=== PATIENT | female | born 1960 | race Caucasian/White ===

== ENCOUNTER 2020-07-06 03:22 | Emergency (ER) | payer MEDICARE, MEDICAID ==
[~2020-07-06] VITALS: Ht 162.6 cm; Wt 75.0 kg
[2020-07-06] MEDS ORDERED: ACETAMINOPHEN 500 MG TABLET PO ONE (03:30)
[2020-07-06] MEDS ORDERED: ACETAMINOPHEN 500 MG TABLET ONE (03:34)
--- NOTE | 2020-07-06 03:37 | NUR ---
Lab here drawing blood, pt refused tylenol says she can't take that. Requested urine sample from pt, instructed on clean catch urine.
--- NOTE | 2020-07-06 03:44 | NUR ---
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 Pt demanding to see physician, yelling at this nurse that "you are rude for telling me that meth is bad".
--- NOTE | 2020-07-06 03:51 | NUR ---
Pt placed on bedpan for urine
[2020-07-06 04:03] LABS: BASOPHILS % (AUTO) 1 % (0-1); EOSINOPHILS % (AUTO) 2 % (1-7); LYMPHOCYTES % (AUTO) 29 % (22-44); MEAN CORPUSCULAR HEMOGLOBIN 33.4 pg (27.0-34.8); MEAN CORPUSCULAR HGB CONC 34.7 g/dL (32.4-35.8); MEAN PLATELET VOLUME 8.2 fL (7.4-10.4); MONOCYTES % (AUTO) 8 % (2-9); NEUTROPHILS % (AUTO) 61 % (42-75); PLATELET COUNT 112 x10^3/uL (130-400); RED BLOOD COUNT 4.17 x10^6/uL (3.82-5.3); RED CELL DISTRIBUTION WIDTH 16.4 % (9.6-15.2)
[2020-07-06 04:09] LABS: ALBUMIN 2.2 g/dL (3.4-5.0); ANION GAP 5 mmol/L (5-15); CHLORIDE 109 mmol/L (98-107); CREATININE 0.59 mg/dL (0.55-1.02)
[2020-07-06 04:21] LABS: MD NO
--- NOTE | 2020-07-06 04:25 | NUR ---
Pt sleeping, RR equal and unlabored. Says no can't provide any urine right now.
[2020-07-06 04:37] VITALS: BP 110/54
--- NOTE | 2020-07-06 04:59 | NUR ---
Pt agrees to in and out cath for urine. Sterile specimen collected, otis clear yellow walked to lab.
--- NOTE | 2020-07-06 05:00 | NUR ---
All of pt clothes are soaked wet with urine. All in red bag, locating clothes for pt.
[2020-07-06 05:12] LABS: HCG UR SG 1.019 (1.003-1.030)
[2020-07-06 05:16] LABS: MICROSCOPIC INDICATED
[2020-07-06] MEDS ORDERED: CEFDINIR 300 MG CAPSULE PO ONE (05:30)
[2020-07-06] MEDS ORDERED: CEFDINIR 300 MG CAPSULE ONE (05:31)
--- NOTE | 2020-07-06 05:35 | NUR ---
Pt requests her urine soaked clothes been thrown away. Provided pt with weather appropriate clothes, socks, bras, long sleeve tops, pants and pair of shoes. Pt given rx and instruct to f/u with clinic, return to ER if worse or concerns.
== END 2020-07-06 06:06 | disposition home or self-care (01) ==
LOC: ED 05:46
DX: N30.01 Acute cystitis with hematuria (principal); M79.605 Pain in left leg; M79.604 Pain in right leg; G44.219 Episodic tension-type headache, not intractable; I10 Essential (primary) hypertension; M19.90 Unspecified osteoarthritis, unspecified site; F17.210 Nicotine dependence, cigarettes, uncomplicated; Z90.49 Acquired absence of other specified parts of digestive tract
CPT/HCPCS: 36415; 80048; 81001; 81025; 82040; 85025; 87086; 99283; 99406

== ENCOUNTER 2020-07-11 07:11 | Emergency (ER) | payer MEDICAID, MEDICARE ==
[~2020-07-11] VITALS: Ht 160 cm; Wt 73.0 kg
--- NOTE | 2020-07-11 07:14 | NUR ---
PATIENT BIB EMS WITH CHIEF C/O BILATERAL NUMBNESS IN FEET AND HANDS. PER EMS PATIENT DID NOT SLEEP AT ALL LAST NIGHT DUE TO NUMBNESS IN HER HANDS AND FEET, ABD PAIN AND NAUSEA. PATIENT ALSO REPORTS LEFT SHOULDER PAIN. PER EMS VITALS STABLE EN ROUTE, BLOOD SUGAR 84. PATIENT GIVEN 4 MG ZOFRAN SL EN ROUTE. PATIENT CONNECTED TO MONITOR, NADN, SIDE RAILS UP X2, CALL LIGHT WITHIN REACH.
--- NOTE | 2020-07-11 07:40 | NUR ---
EDUCATED PATIENT ABOUT NEED FOR URINE SAMPLE, BSC PLACED IN ROOM, PATIENT STATES SHE CANNOT WALK TO BATHROOM.
--- NOTE | 2020-07-11 07:57 | NUR ---
PATIENT TO IMAGING.
[2020-07-11 08:03] LABS: BASOPHILS % (AUTO) 2 % (0-1); EOSINOPHILS % (AUTO) 4 % (1-7); LYMPHOCYTES % (AUTO) 33 % (22-44); MEAN CORPUSCULAR HEMOGLOBIN 33.4 pg (27.0-34.8); MEAN CORPUSCULAR HGB CONC 34.6 g/dL (32.4-35.8); MEAN PLATELET VOLUME 7.8 fL (7.4-10.4); MONOCYTES % (AUTO) 8 % (2-9); NEUTROPHILS % (AUTO) 54 % (42-75); PLATELET COUNT 103 x10^3/uL (130-400); RED BLOOD COUNT 4.24 x10^6/uL (3.82-5.3)
[2020-07-11 08:04] LABS: MD NO
[2020-07-11 08:12] LABS: ALBUMIN 2.6 g/dL (3.4-5.0); ANION GAP 6 mmol/L (5-15); CALCIUM 8.7 mg/dL (8.5-10.1); CHLORIDE 113 mmol/L (98-107)
[2020-07-11 08:17] LABS: ALANINE AMINOTRANSFERASE 42 U/L (12-78); ALKALINE PHOSPHATASE 115 U/L (45-117); BILIRUBIN,TOTAL 5.2 mg/dL (0.2-1.0); CREATININE 0.48 mg/dL (0.55-1.02); TOTAL PROTEIN 7.4 g/dL (6.4-8.2)
--- NOTE | 2020-07-11 08:29 | NUR ---
PATIENT ASSISTED TO [facility] [place] [facility] [place].
--- NOTE | 2020-07-11 08:46 | NUR ---
PATIENT HAD BM AND CONTAMINATED URINE, UNABLE TO SEND SAMPLE. ER PROVIDER NOTIFIED.
--- NOTE | 2020-07-11 09:57 | NUR ---
STRAIGHT CATH PERFORMED, PATIENT TOLERATED WELL, URINE COLLECTED AND WALKED TO LAB.
[2020-07-11 10:10] LABS: MICROSCOPIC INDICATED
--- NOTE | 2020-07-11 10:51 | NUR ---
PATIENT RESTING IN GURNEY WITH EYES CLOSED, RESP EVEN AND UNLABORED, VSS, SIDE RAILS UP X2, CALL LIGHT WITHIN REACH. WAITING FOR RESULTS OF URINE MICRO.
[2020-07-11 11:29] VITALS: BP 92/38
--- NOTE | 2020-07-11 11:44 | NUR ---
Patient given discharge instructions and they have confirmed that they understand the instructions. Taxi voucher given to patient. Patient stable and ambulatory with steady gait with use of walker to taxi.
== END 2020-07-11 11:45 | disposition home or self-care (01) ==
LOC: ED 07:42
DX: M25.512 Pain in left shoulder (principal); B18.2 Chronic viral hepatitis C; K59.00 Constipation, unspecified; R10.84 Generalized abdominal pain; R11.0 Nausea; F17.210 Nicotine dependence, cigarettes, uncomplicated; I10 Essential (primary) hypertension; Z72.9 Problem related to lifestyle, unspecified
CPT/HCPCS: 36415; 74021; 80053; 81001; 83690; 85025; 87086; 99284; 99406

== ENCOUNTER 2020-08-06 12:19 | Inpatient (IN) | payer MEDICAID, MEDICARE ==
[~2020-08-06] VITALS: Ht 160 cm; Wt 87.4 kg
--- NOTE | 2020-08-06 12:38 | NUR ---
PT BIB [facility]. PT FOUND OUTSIDE MOTEL, CO WEAKNESS, NAUSEA AND DIARRHEA X7 DAYS. PT DENIES AND FEVER OR ABDOMINAL PAIN. PT STATED THAT SHE HER "LIVER AND KIDNEYS DONT WORK."
--- NOTE | 2020-08-06 13:15 | NUR ---
PT TO CT
[2020-08-06] MEDS ORDERED: SODIUM CHLORIDE FLUSH 10ML SYR IVF ONE (13:30)
[2020-08-06 13:35] LABS: BASOPHILS % (AUTO) 1 % (0-1); EOSINOPHILS % (AUTO) 3 % (1-7); LYMPHOCYTES % (AUTO) 33 % (22-44); MEAN CORPUSCULAR HEMOGLOBIN 33.6 pg (27.0-34.8); MEAN CORPUSCULAR HGB CONC 34.2 g/dL (32.4-35.8); MEAN PLATELET VOLUME 8.4 fL (7.4-10.4); MONOCYTES % (AUTO) 9 % (2-9); NEUTROPHILS % (AUTO) 55 % (42-75); PLATELET COUNT 118 x10^3/uL (130-400); RED BLOOD COUNT 4.05 x10^6/uL (3.82-5.3); RED CELL DISTRIBUTION WIDTH 17.3 % (9.6-15.2)
[2020-08-06 13:43] LABS: INTERNATIONAL NORMALIZED RATIO 1.26 (0.93-1.1); PROTHROMBIN TIME 13.4 Seconds (9.6-11.5)
[2020-08-06 13:46] LABS: MD NO
[2020-08-06 13:50] LABS: ALANINE AMINOTRANSFERASE 63 U/L (12-78); ANION GAP 6 mmol/L (5-15); CALCIUM 7.8 mg/dL (8.5-10.1); CHLORIDE 114 mmol/L (98-107); CREATININE 0.58 mg/dL (0.55-1.02)
[2020-08-06 13:57] LABS: ALKALINE PHOSPHATASE 131 U/L (45-117); BILIRUBIN,TOTAL 2.6 mg/dL (0.2-1.0); TOTAL PROTEIN 6.7 g/dL (6.4-8.2)
[2020-08-06 13:59] LABS: ACETONE, SERUM Negative (Negative)
--- NOTE | 2020-08-06 14:26 | NUR ---
PT RESTING IN BED COMFORTABLY. CALL LIGHT WITHIN REACH
--- NOTE | 2020-08-06 14:45 | NUR ---
ERMD at bedside to discuss POC. Addendum: 08/06/20 at 1525 by [email or web address] ERMD at bedside to discuss POC. MEdications requested from pharmacy.
[2020-08-06] MEDS ORDERED: LACTULOSE 10 GM/15 ML UDC PO ONE (15:00)
--- NOTE | 2020-08-06 15:11 | NUR ---
REPORT GIVEN TO SHARONDA HARRELL.
[2020-08-06] MEDS ORDERED: POTASSIUM CHLORIDE 20 MEQ TAB.ER.PRT PO ONE (16:00)
[2020-08-06] MEDS ORDERED: ONDANSETRON ODT 4 MG PO PRN (16:00)
[2020-08-06] MEDS ORDERED: ONDANSETRON 2MG/ML, 2ML IVPush PRN (16:00)
[2020-08-06 16:06] VITALS: BP 91/50
[2020-08-06] MEDS: LACTOBACILLUS CHEW TABLET PO SCH ×2 (17:41→22:13)
[2020-08-06] MEDS: PANTOPRAZOLE 80 MG in SODIUM CHLORIDE 0.9% 100 ML IV SCH (17:43)
[2020-08-06] MEDS: LACTATED RINGERS 1,000 ML IV SCH (17:44)
[2020-08-06 18:50] VITALS: BP 106/66
[2020-08-06] MEDS: LACTULOSE 10 GM/15 ML UDC PO SCH (22:13)
[2020-08-07 00:57] LABS: OCCULT BLOOD NEGATIVE (NEGATIVE)
[2020-08-07 01:39] VITALS: BP 120/82
[2020-08-07] MEDS: PANTOPRAZOLE 80 MG in SODIUM CHLORIDE 0.9% 100 ML IV SCH (02:58)
[2020-08-07 06:14] LABS: CHLORIDE 114 mmol/L (98-107)
[2020-08-07] MEDS: LACTATED RINGERS 1,000 ML IV SCH ×2 (06:32→20:50)
[2020-08-07 06:41] LABS: % IRON SATURATION 78 % (20-55); ALANINE AMINOTRANSFERASE 56 U/L (12-78); ALBUMIN 1.9 g/dL (3.4-5.0); ALKALINE PHOSPHATASE 97 U/L (45-117); ANION GAP 6 mmol/L (5-15); BILIRUBIN,TOTAL 3.5 mg/dL (0.2-1.0); CALCIUM 8.1 mg/dL (8.5-10.1); CREATININE 0.49 mg/dL (0.55-1.02); IRON LEVEL 247 mcg/dL (50-170); TOTAL IRON BINDING CAPACITY 315 mcg/dL (250-450); TOTAL PROTEIN 6.1 g/dL (6.4-8.2)
[2020-08-07 08:04] VITALS: BP 99/64
[2020-08-07] MEDS: LACTULOSE 10 GM/15 ML UDC PO SCH ×2 (10:41→21:04)
[2020-08-07] MEDS: LACTOBACILLUS CHEW TABLET PO SCH ×3 (10:41→21:04)
[2020-08-07 13:26] VITALS: BP 81/47
[2020-08-07 13:49] VITALS: BP 96/66
[2020-08-07 18:43] VITALS: BP 105/63
[2020-08-07] MEDS: GABAPENTIN 100 MG CAPSULE PO PRN (22:32)
[2020-08-08 01:33] VITALS: BP 111/71
[2020-08-08 07:27] VITALS: BP 110/71
[2020-08-08 07:27] LABS: BASOPHILS % (AUTO) 1 % (0-1); EOSINOPHILS % (AUTO) 3 % (1-7); LYMPHOCYTES % (AUTO) 39 % (22-44); MEAN CORPUSCULAR HEMOGLOBIN 33.8 pg (27.0-34.8); MEAN CORPUSCULAR HGB CONC 34.6 g/dL (32.4-35.8); MEAN PLATELET VOLUME 8.6 fL (7.4-10.4); MONOCYTES % (AUTO) 9 % (2-9); NEUTROPHILS % (AUTO) 47 % (42-75); PLATELET COUNT 99 x10^3/uL (130-400); RED BLOOD COUNT 3.53 x10^6/uL (3.82-5.3); RED CELL DISTRIBUTION WIDTH 16.8 % (9.6-15.2)
[2020-08-08 07:28] LABS: MD NO
[2020-08-08 07:30] LABS: ALANINE AMINOTRANSFERASE 50 U/L (12-78); ALBUMIN 1.8 g/dL (3.4-5.0); CALCIUM 8.1 mg/dL (8.5-10.1); CREATININE 0.49 mg/dL (0.55-1.02)
[2020-08-08 07:33] LABS: ALKALINE PHOSPHATASE 95 U/L (45-117); BILIRUBIN,TOTAL 2.5 mg/dL (0.2-1.0); TOTAL PROTEIN 5.9 g/dL (6.4-8.2)
[2020-08-08 07:46] LABS: CHLORIDE 114 mmol/L (98-107)
[2020-08-08 07:47] LABS: ANION GAP 3 mmol/L (5-15)
[2020-08-08] MEDS: LACTULOSE 10 GM/15 ML UDC PO SCH ×3 (09:02→21:02)
[2020-08-08] MEDS: LACTOBACILLUS CHEW TABLET PO SCH ×3 (09:02→21:01)
[2020-08-08] MEDS: ENOXAPARIN 40 MG/0.4 ML SQ SCH (11:12)
[2020-08-08] MEDS: LACTATED RINGERS 1,000 ML IV SCH (12:23)
[2020-08-08 14:00] VITALS: BP 95/62
[2020-08-08 16:43] VITALS: BP 95/62
[2020-08-08 20:00] VITALS: BP 99/65
[2020-08-09 02:00] VITALS: BP 108/72
[2020-08-09] MEDS: GABAPENTIN 100 MG CAPSULE PO PRN (02:52)
[2020-08-09 06:03] LABS: BASOPHILS % (AUTO) 1 % (0-1); EOSINOPHILS % (AUTO) 4 % (1-7); LYMPHOCYTES % (AUTO) 37 % (22-44); MEAN CORPUSCULAR HEMOGLOBIN 33.8 pg (27.0-34.8); MEAN CORPUSCULAR HGB CONC 34.8 g/dL (32.4-35.8); MONOCYTES % (AUTO) 11 % (2-9); NEUTROPHILS % (AUTO) 48 % (42-75); PLATELET COUNT 79 x10^3/uL (130-400)
[2020-08-09 06:18] LABS: MD NO
[2020-08-09 06:55] VITALS: BP 112/75
[2020-08-09] MEDS: LACTULOSE 10 GM/15 ML UDC PO SCH ×3 (10:36→21:25)
[2020-08-09] MEDS: LACTOBACILLUS CHEW TABLET PO SCH ×3 (10:37→21:25)
[2020-08-09] MEDS: ENOXAPARIN 40 MG/0.4 ML SQ SCH (10:37)
[2020-08-09] MEDS: RIFAXIMIN 200 MG TABLET PO SCH ×3 (10:44→21:25)
[2020-08-09 12:26] LABS: FIO2 ROOMAIR %
[2020-08-09 13:05] VITALS: BP 103/71
[2020-08-09] MEDS: LACTATED RINGERS 1,000 ML IV SCH ×2 (18:03)
[2020-08-09 18:49] VITALS: BP 100/71
[2020-08-10 01:05] VITALS: BP 106/79
[2020-08-10 07:58] VITALS: BP 104/52
[2020-08-10] MEDS: LACTOBACILLUS CHEW TABLET PO SCH ×3 (10:00→21:25)
[2020-08-10] MEDS: LACTULOSE 10 GM/15 ML UDC PO SCH ×3 (10:00→21:25)
[2020-08-10] MEDS: RIFAXIMIN 200 MG TABLET PO SCH ×3 (10:00→21:25)
[2020-08-10] MEDS: LACTATED RINGERS 1,000 ML IV SCH (10:01)
[2020-08-10] MEDS: ENOXAPARIN 40 MG/0.4 ML SQ SCH (11:00)
[2020-08-10] MEDS: GABAPENTIN 100 MG CAPSULE PO SCH ×2 (11:28→21:25)
[2020-08-10 12:53] VITALS: BP 108/71
[2020-08-10 20:29] VITALS: BP 97/51
[2020-08-11] MEDS: LACTATED RINGERS 1,000 ML IV SCH ×2 (00:57→13:54)
[2020-08-11] MEDS: MELATONIN 5 MG TABLET PO PRN ×2 (02:17→21:43)
[2020-08-11 02:44] VITALS: BP 102/63
[2020-08-11 08:35] VITALS: BP 87/53
[2020-08-11] MEDS: GABAPENTIN 100 MG CAPSULE PO SCH ×3 (08:58→21:43)
[2020-08-11] MEDS: LACTULOSE 10 GM/15 ML UDC PO SCH ×3 (08:58→21:43)
[2020-08-11] MEDS: RIFAXIMIN 200 MG TABLET PO SCH ×3 (08:58→21:43)
[2020-08-11] MEDS: LACTOBACILLUS CHEW TABLET PO SCH ×3 (08:58→21:43)
[2020-08-11 09:41] VITALS: BP 90/55
[2020-08-11] MEDS: ENOXAPARIN 40 MG/0.4 ML SQ SCH (11:14)
[2020-08-11 11:47] LABS: ANION GAP 2 mmol/L (5-15); CALCIUM 8.1 mg/dL (8.5-10.1); CHLORIDE 112 mmol/L (98-107)
[2020-08-11 11:48] LABS: CREATININE 0.44 mg/dL (0.55-1.02)
[2020-08-11] MEDS ORDERED: AMIODARONE 450 MG in DEXTROSE 5% 241 ML IV ONE (12:50)
[2020-08-11 13:13] VITALS: BP 96/58
[2020-08-11] MEDS ORDERED: FILTER 0.22 MICRON FOR AMIODARONE IV PRN (13:30)
[2020-08-11] MEDS ORDERED: AMIODARONE 150 MG in DEXTROSE 5% 100 ML IV ONE (13:30)
[2020-08-11] MEDS: AMIODARONE 450 MG in DEXTROSE 5% 241 ML IV PRN ×2 (13:43→22:58)
[2020-08-11 19:30] VITALS: BP 138/79
[2020-08-12 01:44] VITALS: BP 144/83
[2020-08-12] MEDS ORDERED: KETOROLAC 30 MG/1 ML IVPush ONE (02:30)
[2020-08-12] MEDS: LACTATED RINGERS 1,000 ML IV SCH ×2 (04:12→16:21)
[2020-08-12 06:21] LABS: ANION GAP 3 mmol/L (5-15); CALCIUM 7.8 mg/dL (8.5-10.1); CHLORIDE 111 mmol/L (98-107); CREATININE 0.42 mg/dL (0.55-1.02)
[2020-08-12 08:06] VITALS: BP 102/66
[2020-08-12] MEDS: GABAPENTIN 100 MG CAPSULE PO SCH ×3 (08:11→21:27)
[2020-08-12] MEDS: LACTOBACILLUS CHEW TABLET PO SCH ×3 (08:11→21:27)
[2020-08-12] MEDS: RIFAXIMIN 200 MG TABLET PO SCH ×3 (08:11→21:27)
[2020-08-12] MEDS: LACTULOSE 10 GM/15 ML UDC PO SCH ×3 (08:20→20:42)
[2020-08-12] MEDS: ENOXAPARIN 40 MG/0.4 ML SQ SCH (11:00)
[2020-08-12] MEDS ORDERED: INDOMETHACIN 25 MG CAPSULE PO PRN (11:30)
[2020-08-12 12:23] VITALS: BP 87/55
[2020-08-12] MEDS ORDERED: MAGNESIUM SULFATE PMX 2GM/50ML 50 ML IV ONE (12:30)
[2020-08-12] MEDS: CARVEDILOL 3.125 MG TABLET PO SCH (16:18)
[2020-08-12 19:10] VITALS: BP 147/80
[2020-08-13 02:00] VITALS: BP 143/76
[2020-08-13] MEDS: CARVEDILOL 3.125 MG TABLET PO SCH (06:02)
[2020-08-13] MEDS: RIFAXIMIN 200 MG TABLET PO SCH (08:05)
[2020-08-13] MEDS: LACTULOSE 10 GM/15 ML UDC PO SCH (08:05)
[2020-08-13] MEDS: LACTOBACILLUS CHEW TABLET PO SCH (08:05)
[2020-08-13] MEDS: GABAPENTIN 100 MG CAPSULE PO SCH (08:05)
[2020-08-13 08:24] VITALS: BP 90/58
[2020-08-13] MEDS ORDERED: LACTATED RINGERS 1,000 ML IV SCH (09:00)
[2020-08-13] MEDS ORDERED: ACID1TAB7 PO (10:34)
[2020-08-13] MEDS ORDERED: CARV3.1212 PO (10:34)
[2020-08-13] MEDS ORDERED: INDO25CA22 PO (10:34)
[2020-08-13] MEDS ORDERED: RIFA200T5 PO (10:34)
[2020-08-13] MEDS: ENOXAPARIN 40 MG/0.4 ML SQ SCH (11:00)
[2020-08-13 12:36] VITALS: BP 93/63
== END 2020-08-13 16:48 | DRG 433 ==
LOC: ED 14:13 → EDIP 14:43 → 4EST 15:35
PROVIDERS: ADMIT Internal Medicine; ATTEND Internal Medicine
DX: K70.40 Alcoholic hepatic failure without coma (principal); D61.818 Other pancytopenia; E46 Unspecified protein-calorie malnutrition; E87.3 Alkalosis; I47.2 Ventricular tachycardia; K70.30 Alcoholic cirrhosis of liver without ascites; B19.20 Unspecified viral hepatitis C without hepatic coma; E66.9 Obesity, unspecified; Z68.34 Body mass index [BMI] 34.0-34.9, adult; Z88.6 Allergy status to analgesic agent; E87.6 Hypokalemia; F17.210 Nicotine dependence, cigarettes, uncomplicated; G47.00 Insomnia, unspecified; I49.3 Ventricular premature depolarization; J32.0 Chronic maxillary sinusitis; Z80.3 Family history of malignant neoplasm of breast; I95.9 Hypotension, unspecified; Z71.6 Tobacco abuse counseling; R16.1 Splenomegaly, not elsewhere classified
CPT/HCPCS: 36415; 36600; 70450; 71045; 76705; 80048; 80053; 80074; 82010; 82140; 82272; 82330; 82803; 82962; 83540; 83550; 83605; 83690; 83735; 84132; 85018; 85025; 85610; 87521; 93005; 93306; 93356; 96374; 99285; G0378; J1650; J1885; J2405; J7060; Q0162; C9113; J0282; J3475; J7120

== ENCOUNTER 2020-11-17 17:21 | Inpatient (IN) | payer MEDICARE, MEDICAID ==
[~2020-11-17] VITALS: Ht 160 cm; Wt 82.6 kg
[~2020-11-17 17:21] MED LIST: ACID1TAB7 PO; CARV3.1212 PO; INDO25CA22 PO; RIFA200T5 PO
[2020-11-17] MEDS ORDERED: SODIUM CHLORIDE 0.9% 1,000ML IV ONE (17:30)
[2020-11-17] MEDS ORDERED: SODIUM CHLORIDE FLUSH 10ML SYR IVF ONE (17:30)
[2020-11-17] MEDS ORDERED: ONDANSETRON 2MG/ML, 2ML IVPush ONE (17:30)
[2020-11-17] MEDS ORDERED: PLEASE ENTER HEIGHT AND WEIGHT MC SCH (17:30)
--- NOTE | 2020-11-17 17:38 | NUR ---
PT TO IMAGING VIA [facility].
[2020-11-17 17:49] LABS: BASOPHILS % (AUTO) 1 % (0-1); EOSINOPHILS % (AUTO) 3 % (1-7); LYMPHOCYTES % (AUTO) 37 % (22-44); MEAN PLATELET VOLUME 8.7 fL (7.4-10.4); MONOCYTES % (AUTO) 9 % (2-9); NEUTROPHILS % (AUTO) 49 % (42-75); PLATELET COUNT 105 x10^3/uL (130-400); RED BLOOD COUNT 3.96 x10^6/uL (3.82-5.3); RED CELL DISTRIBUTION WIDTH 16.8 % (9.6-15.2)
[2020-11-17 18:02] LABS: ALANINE AMINOTRANSFERASE 22 U/L (12-78); ALBUMIN 2.1 g/dL (3.4-5.0); ANION GAP 6 mmol/L (5-15); CALCIUM 8.1 mg/dL (8.5-10.1); CHLORIDE 112 mmol/L (98-107)
[2020-11-17 18:04] LABS: ALKALINE PHOSPHATASE 107 U/L (45-117); BILIRUBIN,TOTAL 3.4 mg/dL (0.2-1.0); TOTAL PROTEIN 6.3 g/dL (6.4-8.2)
[2020-11-17] MEDS ORDERED: ONDANSETRON 2MG/ML, 2ML ONE (18:27)
--- NOTE | 2020-11-17 18:47 | NUR ---
IV BOLUS INFUSING. PT STATES SHE CAN'T VOID YET. BP 80s/50s, PT STATES SHE HAS HX OF LOW BP.
--- NOTE | 2020-11-17 19:30 | NUR ---
ASSISTED PT UP TO BSC, INSTRUCTED ON CLEAN CATCH URINE SAMPLE.
[2020-11-17 19:46] LABS: MICROSCOPIC INDICATED
[2020-11-17] MEDS ORDERED: CEFTRIAXONE 1,000 MG in DEXTROSE 5% 50 ML IVPB ONE (20:00)
--- NOTE | 2020-11-17 20:06 | NUR ---
REPORT FORM SPRING MCDONOUGH
--- NOTE | 2020-11-17 20:44 | NUR ---
DELAY IN DC 2/2 POSITIVE ORTHOSTATIC VS. ERP AWARE. MD TO SEE.
--- NOTE | 2020-11-17 20:55 | NUR ---
RECEIVED REPORT FROM ANA MARIA MCDONOUGH.
[2020-11-17] MEDS ORDERED: SODIUM CHLORIDE 0.9% 1,000ML IVBOLUS ONE (21:00)
--- NOTE | 2020-11-17 21:00 | NUR ---
PT RESTING IN GURNEY, ARROUSABLE TO VOICE AND LIGHT PHYSICAL STIM. WARM TO TOUCH, ORAL TEMP 99.1. PT W SOFT BPS AT SITTING, SBP 95. DENIES WEAKNESS/DIZZINESS/NAUSEA/VOMITING AT THIS TIME. PRIMARY CO FLANK PAIN. IVF CONTINUE TO INFUSE. NO S/S OF ABX RXN NOTED. POC IS ADMIT. REPORT TO SHARONDA CORBETT
--- NOTE | 2020-11-17 21:26 | NUR ---
Patient is resting comfortably in bed. Bed in lowest, rails engaged, call light on lap. Vital Signs within normal limits. WCTM. USING DONNA HUGGER FOR PT COMFORTABILITY. DARREL. OCTAVIOTM
--- NOTE | 2020-11-17 21:30 | NUR ---
PT ATTACHED TO CONTINOUS CARD/SP02/BP MONITORS
--- NOTE | 2020-11-17 22:40 | NUR ---
Patient is resting comfortably in bed. Bed in lowest, rails engaged, call light on lap. Vital Signs within normal limits. WCTM. NADN
--- NOTE | 2020-11-17 22:40 | NUR ---
GAVE REPORT TO ISRAEL MCDONOUGH
--- NOTE | 2020-11-17 22:43 | NUR ---
PT STATES SHE LYONS NOT TAKE ANY MEDICATIONS. NO MED REC TO BE FILLED OUT
[2020-11-17] MEDS ORDERED: ENALAPRILAT 1.25 MG/ML, 2ML IVPush PRN (23:30)
[2020-11-17] MEDS ORDERED: ONDANSETRON 2MG/ML, 2ML IVPush PRN (23:30)
[2020-11-17] MEDS ORDERED: DOCUSATE 100 MG CAPSULE PO PRN (23:30)
[2020-11-17] MEDS ORDERED: GUAIFENESIN/DM 200-20MG, 10ML UDC PO PRN (23:30)
[2020-11-17] MEDS ORDERED: OXYcodone IR 5MG TABLET PO PRN (23:30)
[2020-11-17] MEDS ORDERED: ZOLPIDEM 5MG TABLET PO PRN (23:30)
[2020-11-17] MEDS ORDERED: BACLOFEN 10 MG TABLET PO PRN (23:30)
[2020-11-17] MEDS ORDERED: morphine SULFATE 10 MG/ML, 1ML IVPush PRN (23:30)
[2020-11-17] MEDS ORDERED: NAPROXEN 500 MG TABLET PO PRN (23:30)
[2020-11-17] MEDS: SODIUM CHLORIDE 0.9% 1,000 ML IV SCH (23:56)
[2020-11-18] MEDS: ENOXAPARIN 40 MG/0.4 ML SQ SCH ×2 (00:08→23:22)
[2020-11-18 00:31] VITALS: BP 93/50
[2020-11-18 05:44] LABS: CHLORIDE 116 mmol/L (98-107)
[2020-11-18 05:56] LABS: ALANINE AMINOTRANSFERASE 21 U/L (12-78); ALBUMIN 1.7 g/dL (3.4-5.0); ALKALINE PHOSPHATASE 91 U/L (45-117); ANION GAP 3 mmol/L (5-15); BILIRUBIN,TOTAL 2.6 mg/dL (0.2-1.0); CALCIUM 7.7 mg/dL (8.5-10.1); CREATININE 0.45 mg/dL (0.55-1.02); TOTAL PROTEIN 5.7 g/dL (6.4-8.2)
[2020-11-18 06:42] LABS: BASOPHILS % (AUTO) 1 % (0-1); EOSINOPHILS % (AUTO) 4 % (1-7); LYMPHOCYTES % (AUTO) 42 % (22-44); MEAN CORPUSCULAR HEMOGLOBIN 32.9 pg (27.0-34.8); MEAN CORPUSCULAR HGB CONC 34.7 g/dL (32.4-35.8); MEAN PLATELET VOLUME 8.5 fL (7.4-10.4); MONOCYTES % (AUTO) 9 % (2-9); NEUTROPHILS % (AUTO) 45 % (42-75); PLATELET COUNT 92 x10^3/uL (130-400); RED BLOOD COUNT 3.67 x10^6/uL (3.82-5.3); RED CELL DISTRIBUTION WIDTH 16.7 % (9.6-15.2)
[2020-11-18 07:35] VITALS: BP 105/66
[2020-11-18] MEDS: SODIUM CHLORIDE 0.9% 1,000 ML IV SCH (08:31)
[2020-11-18 13:15] VITALS: BP 98/65
[2020-11-18 18:56] VITALS: BP 103/65
[2020-11-18] MEDS: CIPROFLOXACIN 500 MG TABLET PO SCH (19:26)
[2020-11-18] MEDS ORDERED: CEFTRIAXONE 2 GM in DEXTROSE 5% 50 ML IVPB SCH (20:00)
[2020-11-19 00:09] VITALS: BP 100/64
[2020-11-19 07:28] VITALS: BP 89/56
[2020-11-19] MEDS: CIPROFLOXACIN 500 MG TABLET PO SCH ×2 (07:45→19:29)
[2020-11-19 12:52] VITALS: BP 108/67
[2020-11-19 19:08] VITALS: BP 127/77
[2020-11-19] MEDS: ENOXAPARIN 40 MG/0.4 ML SQ SCH (23:20)
[2020-11-20 00:14] VITALS: BP 99/64
[2020-11-20] MEDS: CIPROFLOXACIN 500 MG TABLET PO SCH ×2 (07:35→19:57)
[2020-11-20 07:46] VITALS: BP 102/70
[2020-11-20] MEDS ORDERED: NAPR-856 PO (08:23)
[2020-11-20 13:07] VITALS: BP 101/62
[2020-11-20] MEDS ORDERED: CALCIUM CARBONATE 500 MG TAB.CHEW PO PRN (15:00)
[2020-11-20 16:50] VITALS: BP 124/74
[2020-11-20 21:08] VITALS: BP_SYST 104; BP_DIAS 23; BP_DIAS 53
[2020-11-21 01:20] VITALS: BP 96/57
[2020-11-21 06:59] VITALS: BP 103/67
[2020-11-21] MEDS: CIPROFLOXACIN 500 MG TABLET PO SCH (08:20)
== END 2020-11-21 12:15 | disposition home or self-care (01) | DRG 640 ==
LOC: ED 22:45 → EDIP 23:21 → 3N 23:36
PROVIDERS: ADMIT Internal Medicine; ATTEND Hospitalist
DX: E86.0 Dehydration (principal); J96.01 Acute respiratory failure with hypoxia; N39.0 Urinary tract infection, site not specified; N12 Tubulo-interstitial nephritis, not specified as acute or chronic; B19.20 Unspecified viral hepatitis C without hepatic coma; I10 Essential (primary) hypertension; F17.210 Nicotine dependence, cigarettes, uncomplicated; F10.20 Alcohol dependence, uncomplicated; K70.30 Alcoholic cirrhosis of liver without ascites; N20.0 Calculus of kidney; R29.6 Repeated falls; R73.9 Hyperglycemia, unspecified; Z59.0 Homelessness; Z83.3 Family history of diabetes mellitus; Z79.899 Other long term (current) drug therapy; Z90.49 Acquired absence of other specified parts of digestive tract; Z88.8 Allergy status to other drugs, medicaments and biological substances
CPT/HCPCS: 36415; 74176; 80053; 80320; 81001; 83605; 83690; 85025; 87040; 87086; 93005; 96365; 96375; G0378; J0696; J1650; J2405; G0480; J2270; J7030

== ENCOUNTER 2021-01-12 00:58 | Emergency (ER) | payer MEDICARE, MEDICAID ==
[~2021-01-12] VITALS: Ht 160 cm; Wt 95.0 kg
[~2021-01-12 00:58] MED LIST changes: +NAPR-856 PO
--- NOTE | 2021-01-12 03:49 | NUR ---
PT C/O UPPER LEG PAIN BILATERAL STARTING YESTERDAY. C/O NAUSEA STARTED TODAY. C/O GENERALIZED WEAKNESS
--- NOTE | 2021-01-12 03:53 | NUR ---
PT ON CONT PULSE OX, AROUSES TO VOICE. PT HAS EQUAL HEALTH CARE ATTORNEY, SMILE AND NO FACIAL DROOP. BLE MOVEMENT BUT UNABLE TO HOLD UP FROM BED DUE TO WEAKNESS
--- NOTE | 2021-01-12 04:48 | NUR ---
Patient is SLEEPING comfortably in bed. EYES CLOSED, SNORING. Bed in lowest, rails engaged, call light on lap. Vital Signs within normal limits. WCTM. NADN
[2021-01-12 06:03] LABS: BASOPHILS % (AUTO) 1 % (0-1); EOSINOPHILS % (AUTO) 4 % (1-7); LYMPHOCYTES % (AUTO) 40 % (22-44); MEAN CORPUSCULAR HEMOGLOBIN 33.1 pg (27.0-34.8); MEAN CORPUSCULAR HGB CONC 34.3 g/dL (32.4-35.8); MEAN PLATELET VOLUME 8.5 fL (7.4-10.4); MONOCYTES % (AUTO) 11 % (2-9); NEUTROPHILS % (AUTO) 46 % (42-75); PLATELET COUNT 105 x10^3/uL (130-400); RED BLOOD COUNT 3.99 x10^6/uL (3.82-5.3); RED CELL DISTRIBUTION WIDTH 17.5 % (9.6-15.2)
[2021-01-12 06:12] LABS: ALBUMIN 1.8 g/dL (3.4-5.0); ANION GAP 5 mmol/L (5-15); CALCIUM 7.9 mg/dL (8.5-10.1); CHLORIDE 113 mmol/L (98-107)
[2021-01-12 06:15] LABS: ALANINE AMINOTRANSFERASE 29 U/L (12-78); ALKALINE PHOSPHATASE 123 U/L (45-117); BILIRUBIN,TOTAL 3.7 mg/dL (0.2-1.0); CREATININE 0.45 mg/dL (0.55-1.02); TOTAL PROTEIN 7.2 g/dL (6.4-8.2)
[2021-01-12 06:25] LABS: MICROSCOPIC INDICATED
--- NOTE | 2021-01-12 06:28 | NUR ---
LABOR RELATIONS TEACHER AT BEDSIDE FOR WOUND CARE. STERI STRIPS, BACITRACIN AND BANDAGE IMPLEMENTED
--- NOTE | 2021-01-12 06:41 | NUR ---
TOOK REPORT FROM CHELLE, ASSUME CARE AT THIS TIME
--- NOTE | 2021-01-12 06:51 | NUR ---
GAVE REPORT TO JERRICA MCDONOUGH. PT URINATED ON SELF. PT CLEANSED AND BEDDING WAS CHANGED.
[2021-01-12 07:27] VITALS: BP 94/43
== END 2021-01-12 07:28 | disposition home or self-care (01) ==
LOC: ED 05:49
DX: G89.29 Other chronic pain (principal); M79.661 Pain in right lower leg; M79.662 Pain in left lower leg; N30.00 Acute cystitis without hematuria; G62.9 Polyneuropathy, unspecified; I10 Essential (primary) hypertension; F17.200 Nicotine dependence, unspecified, uncomplicated; Z90.49 Acquired absence of other specified parts of digestive tract
CPT/HCPCS: 36415; 80053; 81001; 85025; 87077; 87086; 87186; 99283